=== PATIENT | female | born 1960 ===

== ENCOUNTER 2024-04-04 18:53 | Emergency (ER) | payer OTHER ==
[2024-04-04 19:22] LABS: #Basophils 0.05 10x3/uL (0.0-0.2); %Basophils 0.7 % (0.0-1.0); %Eosinophils 3.4 % (0.0-10.0); %Monocytes 7.9 % (0.0-10.0); %Neutrophils 42.9 % (42.0-75.0); Hematocrit 39.3 % (36.0-47.0); Hemoglobin 12.7 g/dL (12.0-16.0); Mean Corpuscular HGB CONC 32.3 g/dL (32.0-36.0); Mean Corpuscular Hemoglobin 30.5 pg (27.0-31.0); Mean Corpuscular Volume 94.2 fL (78.0-98.0); Mean Platelet Volume 11.2 fL (7.4-10.4); Platelet Count 223 10x3/uL (130-400); RBC Distribution Width 13.9 % (11.5-14.5); Red Blood Cell (RBC) Count 4.17 mill/uL (4.20-5.40)
[2024-04-04 19:39] LABS: ALT (SGPT) 21 U/L (8-55); AST (SGOT) 17 U/L (5-34); Albumin 3.8 g/dL (3.4-4.8); Alkaline Phosphatase 69 U/L (40-110); Anion Gap 11 mmol/L (10-20); BUN (Urea Nitrogen) 14 mg/dL (9.8-20.1); Bilirubin, Total 0.2 mg/dL (0.2-1.2); Calc. Creatinine Clearance 0 mL/min (70-130); Carbon Dioxide 24 mmol/L (23-31); Chloride 110 mmol/L (98-107); Estimated GFR 99; Globulin 2.7 g/dL (2.4-3.5); Glucose 97 mg/dL (80-115); Potassium 3.9 mmol/L (3.5-5.1); Protein, Total 6.5 g/dL (5.8-8.1); Sodium 141 mmol/L (136-145)
[2024-04-04 19:46] LABS: Troponin I Less than 0.010 ng/mL (< 0.028)
[2024-04-04 21:41] LABS: Lipase 31 U/L (8-78); Magnesium 2.1 mg/dL (1.6-2.6)
[2024-04-04] MEDS ORDERED: Ketorolac Tromethamine 30 MG (1 mL) VIAL ONE (21:42)
[2024-04-04 22:27] LABS: Troponin I Less than 0.010 ng/mL (< 0.028)
== END 2024-04-05 00:16 | disposition home or self-care (01) ==
LOC: ERS 18:53
DX: R07.9 Chest pain, unspecified (principal)
CPT/HCPCS: 36415; 71045; 71275; 80053; 83690; 83735; 83880; 84484; 85025; 93005; J1885